=== PATIENT | female | born 1995 | race Caucasian/White ===

== ENCOUNTER 2017-11-27 10:39 | Emergency (ER) | payer OTHER ==
[2017-11-27 10:56] VITALS: BP 103/62
--- NOTE | 2017-11-27 11:41 | UC ---
FLU HPI - HPI Summary HPI Summary: Patient presents with an unremarkable past medical history. She presents with 2 day onset complaints of generalized fatigue and malaise, with sore throat, and chest congestion with occasional sputum production. She states she is able to eat, drink and handle her own secretions. She reports she is drinking alot of water, but her appetite is less. - History of Current Complaint Hx Obtained From: Patient Hx Last Menstrual Period: 11/11/17 Onset/Duration: Gradual Onset, Lasting Days Severity Currently: Mild Severity Initially: Mild Pain Intensity: 1 Associated Signs & Symptoms: Positive: Sore Throat - Risk Factors Influenza Risk Factors: Negative <Yumi Santillan - Last Filed: 11/27/17 11:36> <Loni Goodrich - Last Filed: 11/27/17 11:59> - History of Current Complaint Chief Complaint: UCRespiratory Stated Complaint: sore throat, and chest congestion Time Seen by Provider: 11/27/17 11:01 - Allergy/Home Medications Allergies/Adverse Reactions: Allergies Allergy/AdvReac Type Severity Reaction Status Date / Time No Known Allergies Allergy Verified 11/27/17 10:52 PMH/Surg Hx/FS Hx/Imm Hx Previously Healthy: Yes - Surgical History Surgical History: None - Family History Known Family History: Positive: None - Social History Occupation: Employed Part-time, Student Alcohol Use: None Substance Use Type: None Smoking Status (MU): Never Smoked Tobacco Have You Smoked in the Last Year: No - Immunization History Vaccination Up to Date: Yes <Yumi Santillan - Last Filed: 11/27/17 11:36> Review of Systems Constitutional: Fever, Chills, Fatigue Skin: Negative Eyes: Negative ENT: Negative, Sore Throat Respiratory: Cough Cardiovascular: Negative Gastrointestinal: Negative Genitourinary: Negative Motor: Negative Neurovascular: Negative Musculoskeletal: Negative Neurological: Negative Psychological: Negative Is Patient Immunocompromised?: No All Other Systems Reviewed And Are Negative: Yes <Yumi Santillan - Last Filed: 11/27/17 11:36> Physical Exam Triage Information Reviewed: Yes Appearance: Ill-Appearing Vital Signs: Initial Vital Signs Temp 99.3 F 11/27/17 10:53 Pulse 83 11/27/17 10:53 Resp 16 11/27/17 10:53 BP 103/62 11/27/17 10:53 Pulse Ox 100 11/27/17 10:53 Vital Signs Reviewed: Yes Eye Exam: Normal ENT: Positive: Pharyngeal erythema Neck exam: Normal Neck: Positive: 1 Respiratory Exam: Normal Respiratory: Positive: Lungs clear, Normal breath sounds, No respiratory distress, No accessory muscle use Cardiovascular Exam: Normal Abdominal Exam: Normal Musculoskeletal Exam: Normal Neurological Exam: Normal Psychological Exam: Normal Skin Exam: Normal <Yumi Santillan - Last Filed: 11/27/17 11:36> Vital Signs: Initial Vital Signs Temp 99.3 F 11/27/17 10:53 Pulse 83 11/27/17 10:53 Resp 16 11/27/17 10:53 BP 103/62 11/27/17 10:53 Pulse Ox 100 11/27/17 10:53 <Loni Goodrich - Last Filed: 11/27/17 11:59> Flu Course/Dx - Course Course Of Treatment: Patient presents with an unremarkable past medical history. She presents with 2 day onset influenza like illness. Rapid strep was negative. She had temp of 99, otherwise noraml vital signs. She was taken out of school and work until Saturday. And, if for any reason she does not improve as anticipated she understands that she would need to be re-evaluated. She verbalized understanding and was in agreement with the discharge plan. - Differential Dx/Diagnosis Differential Diagnosis/HQI/PQRI: Influenza Provider Diagnoses: influenza <Neo Santillanbrian Darnell - Last Filed: 11/27/17 11:36> Discharge <SantillanYumibrian Darnell - Last Filed: 11/27/17 11:36> <Loni Goodrich - Last Filed: 11/27/17 11:59> - Discharge Plan Condition: Stable Disposition: HOME Prescriptions: Oseltamivir CAP* [Tamiflu CAP*] 75 mg PO BID #10 cap Patient Education Materials: Influenza (DC) Forms: *School Release, *Work Release Referrals: Earnest Altamirano MD [Primary Care Provider] - Attestation Statement User Type: Provider - I was available for consult. This patient was seen by the YVETTE. The patient was not presented to, seen by, or examined by me. Mainj <Loni Goodrich - Last Filed: 11/27/17 11:59>
== END 2017-11-27 11:54 | disposition home or self-care (01) ==
LOC: UCEAST 10:39
DX: J11.1 Influenza due to unidentified influenza virus with other respiratory manifestations (principal)
CPT/HCPCS: 87651; 99212; G0463

== ENCOUNTER 2018-05-18 19:29 | Emergency (ER) | payer OTHER ==
[2018-05-18 20:29] VITALS: BP 106/56
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
--- NOTE | 2018-05-19 08:02 | RAD ---
HISTORY: injury radial pain COMPARISONS: None VIEWS: 4, Frontal, lateral, oblique, and scaphoid deviation views of the right wrist FINDINGS: BONE DENSITY: Normal. BONES: There is no displaced fracture. JOINTS: There is no arthropathy. ALIGNMENT: There is no dislocation. SOFT TISSUES: Unremarkable. OTHER FINDINGS: None. IMPRESSION: NO ACUTE OSSEOUS INJURY. IF SYMPTOMS PERSIST, RECOMMEND REPEAT IMAGING. R0
== END 2018-05-18 21:49 | disposition home or self-care (01) ==
LOC: UCEAST 19:29
DX: S60.221A Contusion of right hand, initial encounter (principal); S69.91XA Unspecified injury of right wrist, hand and finger(s), initial encounter; V86.55XA Driver of 3- or 4- wheeled all-terrain vehicle (ATV) injured in nontraffic accident, initial encounter; Y93.89 Activity, other specified; Y92.39 Other specified sports and athletic area as the place of occurrence of the external cause
CPT/HCPCS: 99212; G0463

== ENCOUNTER 2018-06-22 16:28 | Emergency (ER) | payer OTHER ==
--- OUTSIDE RECORDS SUMMARY | 2018-06-22 17:02 | XMS REPORT ---
:1995 External Reference #:[id number] Author Organization [facility] Address [address] [place] [address] Phone [phone] Care Team Providers Name Role Phone Earnest Altamirano MD Primary Care Physician Unavailable Payers Type Date Identification Numbers Payment Provider Subscriber Commercial Policy Number: [id number] [employer] Alina Marie PayID: [id number] [address] [place] [address] Commercial Expires: Policy Number: [employer] Alina Marie 2015 [id number] Medicaid PayID: [id number] [address] [place], [place] [id number] Problems Date Description Provider Status Onset: 04/10/2017 Current tear of medial cartilage AND/OR Aurelia Lagos M.D. Active meniscus of knee Onset: 06/03/2017 Sprain of medial collateral ligament of Aurelia Lagos M.D. Active knee Family History Date Family Member(s) Problem(s) Comments General Diabetes Social History Type Date Description Comments Lives With Family ETOH Use Never used alcohol Smoking Patient has never smoked Exercise Type/Frequency Exercises regularly Allergies, Adverse Reactions, Alerts Date Description Reaction Status Severity Comments 03/28/2016 NKDA active Medications Medication Date Status Form Strength Qnty SIG Indications Ordering Provider Control Active Unknown 000 No Active Hx Unknown Medications 017 - 017 Naproxen Hx Tablets 500mg 30tabs 1 tablet M25.561 Aurelia 017 - with food Di Lagos by mouth 017 twice a day Control /0 Hx Unknown 000 - 017 Vital Signs Date Vital Result Comment 06/05/2018 Height 64 inches 5'4" Weight 118.00 lb Heart Rate 56 /min BP Systolic 104 mmHg BP Diastolic 66 mmHg Body Temperature 96.2 F BMI (Body Mass Index) 20.3 kg/m2 06/05/2018 Height 65 inches 5'5" Respiratory Rate 16 /min 06/03/2017 Height 65 inches 5'5" Weight 120.00 lb Heart Rate 66 /min BP Systolic 115 mmHg BP Diastolic 70 mmHg Body Temperature 97.9 F Pain Level 0 BMI (Body Mass Index) 20.0 kg/m2 05/24/2017 Height 65 inches 5'5" Weight 120.00 lb Heart Rate 67 /min BP Systolic 116 mmHg BP Diastolic 68 mmHg Pain Level 0 BMI (Body Mass Index) 20.0 kg/m2 04/10/2017 Height 65 inches 5'5" Weight 117.00 lb Heart Rate 57 /min BP Systolic 111 mmHg BP Diastolic 69 mmHg Body Temperature 97.6 F BMI (Body Mass Index) 19.5 kg/m2 03/28/2016 Height 65 inches 5'5" Weight 122.00 lb Heart Rate 57 /min BP Systolic 101 mmHg BP Diastolic 69 mmHg BMI (Body Mass Index) 20.3 kg/m2 Blood Pressure Percentile 15 % Height Percentile 62 % Weight Percentile 44th Results Description No Information Procedures Date CPT Code Description Status 03/28/2016 60991 CLST TRMT Distal Radial FX Completed 09/30/2013 01556 Rad Exam; Knee Comp Completed 09/03/2011 93354 Rad Exam; Wrist, Comp, Min 3 Views Completed 09/03/2011 00807 Rad Exam; Wrist Limited, 2 Views Completed Encounters Type Date Location Provider CPT E/M Dx Office Visit 06/03/2017 [facility] Aurelia Lagos M.D. 66933 M25.561 3:15p Of [facility] M25.461 S83.411D Office Visit 05/24/2017 2:15p [facility] Aurelia Lagos M.D. 99189 M25.461 [facility] S83.241A M25.561 Office Visit 04/10/2017 11:00a [facility] A[facility] Lagos M.D. 07988 M25.561 [facility] M25.461 S83.241A Office Visit 10/16/2013 8:00a [facility] A[facility] Lagos M.D. 51512 717.7 [facility] Office Visit 09/30/2013 2:30p [facility] Lagos M.D. 76840 719.46 [facility] Office Visit 09/03/2011 3:15p [facility] J[facility] Noel M.D. 62526 842.00 [facility] Plan of Care Future Appointment(s):07/03/2018 1:00 pm - Corrie Barnard M.D. at [facility]06/05/2018 - Corrie Barnard M.D.M65.4 Radial styloid tenosynovitis [de Quervain]New Therapy:Physical TherapyFollow up:Follow up: 4- 6 weeks
[2018-06-22] MEDS ORDERED: NS 0.9% 1000 ML* 1,000 ML IV ONE (17:39)
[2018-06-22 18:05] LABS: ABS Basophils 0 10^3/ul (0-0.2); ABS Eosinophils 0 10^3/ul (0-0.6); ABS Lymphocytes 1.2 10^3/ul (1.0-4.8); ABS Monocytes 0.6 10^3/ul (0-0.8); ABS Neutrophils 11.3 10^3/ul (1.5-7.7); ABS Nucleated RBC 0 10^3/ul; Eosinophil % 0.1 % (0-6); Hematocrit 36 % (35-47); Mean Corpuscular HGB Conc 33 g/dl (31-36); Mean Corpuscular Hemoglobin 28 pg (27-31); Mean Corpuscular Volume 86 fL (80-97); Nucleated Red Blood Cells % 0; Platelet Count 255 10^3/ul (150-450); Red Blood Count 4.23 10^6/ul (4.00-5.40); Red Cell Distribution Width 16 % (10.5-15); White Blood Count 13.1 10^3/ul (3.5-10.8)
[2018-06-22 18:10] LABS: INR 1.06 (0.77-1.02)
[2018-06-22 18:21] LABS: Urine Appearance Clear; Urine Blood Negative (Negative); Urine Color Straw; Urine Ketones Negative (Negative); Urine Protein Negative (Negative); Urine Specific Gravity 1.003 (1.010-1.030); Urine Urobilinogen Negative (Negative)
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
[2018-06-22] MEDS ORDERED: Iohexol 300* (CONTRAST) 10 ML SDV IV ONE (18:32)
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
[2018-06-22] MEDS ORDERED: oxyCODONE/Acetamin 5/325 MG* TAB PO ONE ×2 (20:18→20:21)
[2018-06-22 21:02] VITALS: BP 121/74
--- NOTE | 2018-06-23 07:39 | RAD ---
INDICATION: Left femur injury COMPARISON: None TECHNIQUE: AP, lateral, and oblique views were obtained. FINDINGS: The bony structures, joint spaces, and soft tissues are normal for age. IMPRESSION: NEGATIVE EXAMINATION. R0
--- NOTE | 2018-06-23 07:40 | RAD ---
INDICATION: Left hip injury COMPARISON: None TECHNIQUE: An AP view of the pelvis and AP views of the hip in neutral and abducted position were obtained FINDINGS: Bones: There are no acute bony findings. Joint spaces: The hips articulate normally. The joint spaces are preserved. SI joints/symphysis: The SI joints and symphysis are intact. Other: None IMPRESSION: NEGATIVE EXAMINATION. R0
== END 2018-06-22 21:02 | disposition home or self-care (01) ==
LOC: ED 16:28
DX: S70.02XA Contusion of left hip, initial encounter (principal); V86.55XA Driver of 3- or 4- wheeled all-terrain vehicle (ATV) injured in nontraffic accident, initial encounter; Y93.89 Activity, other specified; Y92.39 Other specified sports and athletic area as the place of occurrence of the external cause
CPT/HCPCS: 36415; 71260; 74177; 80053; 81003; 83690; 84702; 85025; 85610; 96360; 96361; 99283; A9270-GY; Q9967

== ENCOUNTER 2018-07-30 11:03 | Emergency (ER) | payer OTHER ==
[2018-07-30 12:14] VITALS: BP 112/67
[2018-07-30] MEDS ORDERED: predniSONE TAB* 20 MG PO ONE (12:56)
--- NOTE | 2018-07-30 12:58 | UC ---
Skin Complaint HPI - HPI Summary HPI Summary: The patient is a 22-year-old female with the onset of rash yesterday morning. The rash is pruritic. She has been spreading . She had been staying at a cabin this weekend. She has no fever or chills. - History of Current Complaint Chief Complaint: UCRash Time Seen by Provider: 07/30/18 12:51 Stated Complaint: RASH Hx Obtained From: Patient Hx Last Menstrual Period: 07/30/18 Onset/Duration: Gradual Onset, Lasting Days Timing: Constant Onset Severity: Mild Current Severity: Moderate Pain Intensity: 3 Pain Scale Used: 0-10 Numeric Location: Generalized Character: Pruritus, Redness, Raised Aggravating Factor(s): Nothing Associated Signs & Symptoms: Positive: Rash - Allergy/Home Medications Allergies/Adverse Reactions: Allergies Allergy/AdvReac Type Severity Reaction Status Date / Time No Known Allergies Allergy Verified 07/30/18 12:14 Review of Systems Constitutional: Negative Skin: Rash Eyes: Negative ENT: Negative Respiratory: Negative Cardiovascular: Negative Gastrointestinal: Negative Genitourinary: Negative Motor: Negative Neurovascular: Negative Musculoskeletal: Negative Neurological: Negative Psychological: Negative Is Patient Immunocompromised?: No All Other Systems Reviewed And Are Negative: Yes PMH/Surg Hx/FS Hx/Imm Hx Previously Healthy: Yes - Surgical History Surgical History: None Surgery Procedure, Year, and Place: No prior surgeries. - Family History Known Family History: Positive: None Negative: Cardiac Disease, Hypertension, Diabetes - Social History Alcohol Use: None Substance Use Type: None Smoking Status (MU): Never Smoked Tobacco Have You Smoked in the Last Year: No - Immunization History Vaccination Up to Date: Yes Physical Exam Triage Information Reviewed: Yes Appearance: Well-Appearing, No Pain Distress, Well-Nourished Vital Signs: Initial Vital Signs Temp 98.3 F 07/30/18 12:11 Pulse 73 07/30/18 12:11 Resp 18 07/30/18 12:11 BP 112/67 07/30/18 12:11 Pulse Ox 100 07/30/18 12:11 Vital Signs Reviewed: Yes Eyes: Positive: Conjunctiva Clear Neck: Positive: Supple, Nontender, No Lymphadenopathy Respiratory: Positive: Lungs clear, Normal breath sounds, No respiratory distress, No accessory muscle use Cardiovascular: Positive: RRR, No Murmur Musculoskeletal: Positive: ROM Intact, No Edema Neurological Exam: Normal Psychological Exam: Normal Skin: Positive: Other - red papules inlinear arrrays/face/arms/trunk/legs Course/Dx - Diagnoses Provider Diagnoses: contact dermatitis Discharge - Sign-Out/Discharge Documenting (check all that apply): Patient Departure All imaging exams completed and their final reports reviewed: No Studies - Discharge Plan Condition: Stable Disposition: HOME Prescriptions: predniSONE TAB* [Deltasone 10 MG TAB*] 10 - 60 mg PO DAILY #43 tab Patient Education Materials: Contact Dermatitis (ED) Referrals: Earnest Altamirano MD [Primary Care Provider] - 1 Week (if not better) Additional Instructions: oral benadryl if needed for itching - Billing Disposition and Condition Condition: STABLE Disposition: Home
== END 2018-07-30 13:08 | disposition home or self-care (01) ==
LOC: UCEAST 11:03
DX: L25.9 Unspecified contact dermatitis, unspecified cause (principal)
CPT/HCPCS: 99212; G0463; J7512